=== PATIENT | female | born 1955 | race Caucasian/White ===

== ENCOUNTER 2023-06-23 09:44 | Emergency (ER) | payer OTHER, MEDICAID ==
[~2023-06-23] VITALS: Ht 160 cm; Wt 52.8 kg
[2023-06-23 09:55] VITALS: BP 128/82; PULSE 66; RESP 16; TEMP 97.9; O2SAT 97
[2023-06-23 10:40] LABS: Urine Bacteria NONE SEEN /hpf (None Seen); Urine Blood 2+ /uL (Negative); Urine Clarity CLOUDY (Clear); Urine Color Yellow (Yellow); Urine Protein, UAD 1+ (Negative); Urine Specific Gravity 1.015 (1.001-1.035); Urine Urobilinogen Normal (Negative); Urine WBC 462 /hpf (0 - 5); Urine pH 7.5 (5.0-8.0)
[2023-06-23] MEDS ORDERED: BACDST PO (13:03)
[2023-06-23] MEDS ORDERED: cefTRIAXone SOD 1,000 MG VL IM ONE (13:15)
== END 2023-06-23 13:59 | disposition home or self-care (01) ==
LOC: ER 09:44
DX: N30.90 Cystitis, unspecified without hematuria (principal); Z88.0 Allergy status to penicillin
CPT/HCPCS: 81001